=== PATIENT | female | born 1960 | race Caucasian/White ===

== ENCOUNTER → 2021-04-30 13:32 | Outpatient (CLI) | payer OTHER, SELFPAY ==
--- NOTE | 2021-04-30 13:39 | VDLE_ITS ---
Reason For Study: DVT Procedure LEFT This is a venous duplex using B-mode, color GSV is normal. flow and spectral Doppler. CFV is compressible, spontaneous, phasic, Exam performed in department. competent, and demonstrates normal A preliminary report was called and/or faxed augmentation. to Left message on office phone and Faviola FV is compressible, spontaneous, phasic, Bia's cell. competent and demonstrates normal Released patient home with instructions to augmentation. call office in AM. POP V is compressible, spontaneous, phasic, competent and demonstrates normal augmentation. T/P Trunk is compressible. PTV is compressible. LT PerV is compressible. Thrombus filled varicose veins noted in the posterior prox-distal thigh, lateral knee and lateral prox calf. VL/Venous Duplex US, Unilateral Interpretation Summary Deep veins of the left lower extremity are patent and compressible segmentally. There is no evidence of left lower extremity deep vein thrombosis. Valvular competence appears intac t within the proximal deep venous system on the left . The left great saphenous vein appears patent a nd compressible segmentally. Acute superficial thrombophlebitis is noted involving varicosities in the left posterior thigh and lateral knee/proximal calf. Ordering Physician: Faviola Amezquita Referring Physician: Kanu Campos Performed By: Luma Umana RVT
== END ==
PROVIDERS: PCP Family Medicine; Referring Provider Nurse Practitioner Family; Visit Provider Nurse Practitioner Family
DX: I80.02 Phlebitis and thrombophlebitis of superficial vessels of left lower extremity (principal)
CPT/HCPCS: 93971